=== PATIENT | female | born 1940 | race Caucasian/White ===

== ENCOUNTER → 2016-04-20 | Outpatient (CLI) | payer OTHER, MEDICARE ==
[~2016-04-20] MED LIST: ACET-1175 PO; AFRINWC; ALLO100T PO; ARC10 PO; ASPEC81 PO; ATOR10TA88 PO; BUSP15TA70 PO; CALCIUM CARBONATE 500 MG PO; CHOLECALCIFEROL PO; CLON1TAB3 PO; CLOP1TAB15 PO; CMD/25 PO; CYAN500T PO; DULO60CA44 PO; FRS/40 PO; ISOS30TA3 PO; LEVO150T22 PO; LSN25 PO; MAGNSUS5 PO; MEMA10TA PO; METO50TA7 PO; OMEP20CA59 PO; OXYC-57 PO; PRNJ PO; QUET1TAB30 PO; SENN-61 PO; THERA M PO; ULT/50 PO
== END ==
LOC: C.LABCC 12:17
PROVIDERS: ATTEND Internal Medicine
DX: J02.9 Acute pharyngitis, unspecified (principal)

== ENCOUNTER → 2016-05-18 | Outpatient (CLI) | payer OTHER, MEDICARE ==
[2016-05-18 09:18] LABS: INR 1.7 (0.9-1.1); PROTHROMBIN TIME (PATIENT) 18.1 SECONDS (9.0-12.0)
== END ==
LOC: C.LABCC 08:12
PROVIDERS: ATTEND Internal Medicine
DX: I48.91 Unspecified atrial fibrillation (principal)

== ENCOUNTER → 2016-05-22 | Outpatient (CLI) | payer OTHER, MEDICARE ==
[2016-05-22 09:36] LABS: INR 1.7 (0.9-1.1); PROTHROMBIN TIME (PATIENT) 18.1 SECONDS (9.0-12.0)
== END ==
LOC: C.LABCC 08:44
PROVIDERS: ATTEND Internal Medicine
DX: I48.91 Unspecified atrial fibrillation (principal)

== ENCOUNTER → 2016-05-25 | Outpatient (CLI) | payer OTHER, MEDICARE ==
[2016-05-25 08:51] LABS: INR 1.6 (0.9-1.1); PROTHROMBIN TIME (PATIENT) 17.9 SECONDS (9.0-12.0)
== END ==
LOC: C.LABCC 08:14
PROVIDERS: ATTEND Internal Medicine
DX: I48.91 Unspecified atrial fibrillation (principal)

== ENCOUNTER → 2016-05-30 | Outpatient (CLI) | payer OTHER, MEDICARE ==
[2016-05-30 08:20] LABS: INR 1.9 (0.9-1.1)
== END ==
LOC: C.LABCC 07:54
PROVIDERS: ATTEND Internal Medicine
DX: I82.409 Acute embolism and thrombosis of unspecified deep veins of unspecified lower extremity (principal)

== ENCOUNTER → 2016-06-07 | Outpatient (CLI) | payer OTHER, MEDICARE ==
[2016-06-07 08:38] LABS: INR 1.7 (0.9-1.1)
== END ==
LOC: C.LABCC 08:04
PROVIDERS: ATTEND Internal Medicine
DX: I82.409 Acute embolism and thrombosis of unspecified deep veins of unspecified lower extremity (principal)

== ENCOUNTER → 2016-06-14 | Outpatient (CLI) | payer OTHER, MEDICARE ==
[2016-06-14 08:15] LABS: INR 2.1 (0.9-1.1)
== END ==
LOC: C.LABCC 07:54
PROVIDERS: ATTEND Internal Medicine
DX: I82.409 Acute embolism and thrombosis of unspecified deep veins of unspecified lower extremity (principal)

== ENCOUNTER → 2016-06-21 | Outpatient (CLI) | payer OTHER, MEDICARE ==
[2016-06-21 09:42] LABS: INR 2.4 (0.9-1.1); PROTHROMBIN TIME (PATIENT) 26.8 SECONDS (9.0-12.0)
== END ==
LOC: C.LABCC 08:42
PROVIDERS: ATTEND Internal Medicine
DX: I82.409 Acute embolism and thrombosis of unspecified deep veins of unspecified lower extremity (principal)

== ENCOUNTER → 2016-07-06 | Outpatient (CLI) | payer OTHER, MEDICARE ==
[2016-07-06 09:04] LABS: INR 3.1 (0.9-1.1); PROTHROMBIN TIME (PATIENT) 34.2 SECONDS (9.0-12.0)
== END | disposition home or self-care (01) ==
LOC: C.LABCC 07:59
PROVIDERS: ATTEND Internal Medicine
DX: I82.409 Acute embolism and thrombosis of unspecified deep veins of unspecified lower extremity (principal)

== ENCOUNTER → 2016-08-21 | Outpatient (CLI) | payer OTHER, MEDICARE ==
[~2016-08-21] MED LIST changes: +ATOR10TA82 PO; -ATOR10TA88 PO
[2016-08-21 10:17] LABS: INR 3.1 (0.9-1.1); PROTHROMBIN TIME (PATIENT) 34.7 SECONDS (9.0-12.0)
[2016-08-21 10:21] LABS: ALT/SGPT 35 U/L (12-78); AST/SGOT 24 U/L (15-37); BLOOD UREA NITROGEN 18 mg/dl (7-18); BUN/CREATININE RATIO 11.4 (10-20); CALCIUM 8.5 mg/dl (8.5-10.1); CARBON DIOXIDE 32 mmol/L (21-32); CHLORIDE 101 mmol/L (98-107); GLUCOSE 121 mg/dl (70-99); POTASSIUM 4.3 mmol/L (3.5-5.1); SODIUM 139 mmol/L (136-145)
[2016-08-21 10:32] LABS: ALB/GLOB RATIO 0.9 (0.9-2); ALKALINE PHOSPHATASE 54 U/L (45-117); CHOLESTEROL 184 mg/dl (0-200); HDL CHOLESTEROL 37 mg/dl; LDL CHOLESTEROL CALCULATED 88 mg/dl; TRIGLYCERIDES 296 mg/dl (0-150); VERY LOW DENSITY LIPOPROT CALC 59 mg/dl
== END ==
LOC: C.LABCC 09:32
PROVIDERS: ATTEND Internal Medicine
DX: E03.9 Hypothyroidism, unspecified (principal); I82.409 Acute embolism and thrombosis of unspecified deep veins of unspecified lower extremity

== ENCOUNTER → 2016-08-28 | Outpatient (CLI) | payer OTHER, MEDICARE ==
[2016-08-28 09:36] LABS: ESTIMATED AVERAGE GLUCOSE 140 mg/dl; HA1C FLAG Normal (Normal)
== END ==
LOC: C.LABCC 08:16
PROVIDERS: ATTEND Internal Medicine
DX: R73.09 Other abnormal glucose (principal)

== ENCOUNTER → 2016-08-29 | Outpatient (CLI) | payer OTHER, MEDICARE ==
[2016-08-29 09:29] LABS: INR 1.9 (0.9-1.1); PROTHROMBIN TIME (PATIENT) 21.1 SECONDS (9.0-12.0)
== END ==
LOC: C.LABCC 08:34
PROVIDERS: ATTEND Internal Medicine
DX: I82.409 Acute embolism and thrombosis of unspecified deep veins of unspecified lower extremity (principal)

== ENCOUNTER → 2016-09-06 | Outpatient (CLI) | payer OTHER, MEDICARE ==
[2016-09-06 12:26] LABS: INR 2.4 (0.9-1.1); PROTHROMBIN TIME (PATIENT) 26.6 SECONDS (9.0-12.0)
== END ==
LOC: C.LABCC 15:34
PROVIDERS: ATTEND Internal Medicine
DX: I48.91 Unspecified atrial fibrillation (principal)

== ENCOUNTER → 2016-09-21 | Outpatient (CLI) | payer OTHER, MEDICARE ==
[2016-09-21 09:21] LABS: INR 2.3 (0.9-1.1); PROTHROMBIN TIME (PATIENT) 25.3 SECONDS (9.0-12.0)
== END | disposition home or self-care (01) ==
LOC: C.LABCC 08:03
PROVIDERS: ATTEND Internal Medicine
DX: I48.91 Unspecified atrial fibrillation (principal)

== ENCOUNTER → 2016-10-20 | Outpatient (CLI) | payer OTHER, MEDICARE ==
[~2016-10-20] MED LIST changes: -ATOR10TA82 PO; +ATOR10TA88 PO
[2016-10-20 08:54] LABS: PROTHROMBIN TIME (PATIENT) 22.1 SECONDS (9.0-12.0)
== END ==
LOC: C.LABCC 08:14
PROVIDERS: ATTEND Internal Medicine
DX: I48.91 Unspecified atrial fibrillation (principal)

== ENCOUNTER → 2016-11-23 | Outpatient (CLI) | payer OTHER, MEDICARE ==
[2016-11-23 08:40] LABS: PROTHROMBIN TIME (PATIENT) 44.2 SECONDS (9.0-12.0)
[2016-11-23 08:49] LABS: INR 3.9 (0.9-1.1)
== END ==
LOC: C.LABCC 08:02
PROVIDERS: ATTEND Internal Medicine
DX: I48.91 Unspecified atrial fibrillation (principal)

== ENCOUNTER → 2016-11-27 | Outpatient (CLI) | payer OTHER, MEDICARE ==
[2016-11-27 11:00] LABS: BLOOD UREA NITROGEN 35 mg/dl (7-18); BUN/CREATININE RATIO 18.4 (10-20); CALCIUM 9.2 mg/dl (8.5-10.1); CARBON DIOXIDE 33 mmol/L (21-32); CHLORIDE 94 mmol/L (98-107); GLUCOSE 130 mg/dl (70-99); POTASSIUM 4.2 mmol/L (3.5-5.1); SODIUM 132 mmol/L (136-145)
[2016-11-27 11:06] LABS: INR 2.7 (0.9-1.1); PROTHROMBIN TIME (PATIENT) 29.6 SECONDS (9.0-12.0)
== END ==
LOC: C.LABCC 10:26
PROVIDERS: ATTEND Internal Medicine
DX: I82.409 Acute embolism and thrombosis of unspecified deep veins of unspecified lower extremity (principal); R60.9 Edema, unspecified

== ENCOUNTER → 2016-12-04 | Outpatient (CLI) | payer OTHER, MEDICARE ==
[2016-12-04 09:59] LABS: INR 1.5 (0.9-1.1); PROTHROMBIN TIME (PATIENT) 16.4 SECONDS (9.0-12.0)
== END ==
LOC: C.LABCC 09:38
PROVIDERS: ATTEND Internal Medicine
DX: I82.409 Acute embolism and thrombosis of unspecified deep veins of unspecified lower extremity (principal)

== ENCOUNTER → 2016-12-08 | Outpatient (CLI) | payer OTHER, MEDICARE ==
[2016-12-08 08:51] LABS: INR 1.8 (0.9-1.1); PROTHROMBIN TIME (PATIENT) 19.6 SECONDS (9.0-12.0)
== END ==
LOC: C.LABCC 08:02
PROVIDERS: ATTEND Internal Medicine
DX: I82.409 Acute embolism and thrombosis of unspecified deep veins of unspecified lower extremity (principal)

== ENCOUNTER → 2016-12-19 | Outpatient (CLI) | payer OTHER, MEDICARE ==
[2016-12-19 11:29] LABS: INR 1.7 (0.9-1.1); PROTHROMBIN TIME (PATIENT) 18.5 SECONDS (9.0-12.0)
== END ==
LOC: C.LABCC 09:03
PROVIDERS: ATTEND Internal Medicine
DX: I82.409 Acute embolism and thrombosis of unspecified deep veins of unspecified lower extremity (principal)

== ENCOUNTER → 2016-12-20 | Outpatient (CLI) | payer OTHER, MEDICARE ==
[2016-12-20 11:26] LABS: BLOOD UREA NITROGEN 17 mg/dl (7-18); BUN/CREATININE RATIO 11.4 (10-20); CALCIUM 8.9 mg/dl (8.5-10.1); CARBON DIOXIDE 30 mmol/L (21-32); CHLORIDE 97 mmol/L (98-107); GLUCOSE 131 mg/dl (70-99); POTASSIUM 4.3 mmol/L (3.5-5.1); SODIUM 135 mmol/L (136-145)
[2016-12-20 11:41] LABS: ESTIMATED AVERAGE GLUCOSE 151 mg/dl; HA1C FLAG Normal (Normal)
== END ==
LOC: C.LABCC 08:40
PROVIDERS: ATTEND Internal Medicine
DX: R73.09 Other abnormal glucose (principal); N18.9 Chronic kidney disease, unspecified

== ENCOUNTER → 2016-12-25 | Outpatient (CLI) | payer OTHER, MEDICARE ==
[2016-12-25 09:59] LABS: PROTHROMBIN TIME (PATIENT) 22.6 SECONDS (9.0-12.0)
== END ==
LOC: C.LABCC 09:15
PROVIDERS: ATTEND Internal Medicine
DX: I82.409 Acute embolism and thrombosis of unspecified deep veins of unspecified lower extremity (principal)

== ENCOUNTER → 2016-12-29 | Outpatient (CLI) | payer OTHER, MEDICARE ==
[2016-12-29 08:32] LABS: ESTIMATED AVERAGE GLUCOSE 148 mg/dl; HA1C FLAG Normal (Normal)
== END ==
LOC: C.LABCC 07:59
PROVIDERS: ATTEND Internal Medicine
DX: E11.9 Type 2 diabetes mellitus without complications (principal)

== ENCOUNTER → 2017-01-02 | Outpatient (CLI) | payer OTHER, MEDICARE ==
[2017-01-02 08:18] LABS: INR 2.4 (0.9-1.1); PROTHROMBIN TIME (PATIENT) 26.6 SECONDS (9.0-12.0)
== END ==
LOC: C.LABCC 07:44
PROVIDERS: ATTEND Internal Medicine
DX: I82.409 Acute embolism and thrombosis of unspecified deep veins of unspecified lower extremity (principal)

== ENCOUNTER → 2017-01-17 | Outpatient (CLI) | payer OTHER, MEDICARE ==
[2017-01-17 09:01] LABS: INR 1.7 (0.9-1.1); PROTHROMBIN TIME (PATIENT) 18.5 SECONDS (9.0-12.0)
== END | disposition home or self-care (01) ==
LOC: C.LABCC 08:37
PROVIDERS: ATTEND Internal Medicine
DX: I82.409 Acute embolism and thrombosis of unspecified deep veins of unspecified lower extremity (principal)

== ENCOUNTER → 2017-02-20 | Outpatient (CLI) | payer OTHER, MEDICARE ==
[~2017-02-20] MED LIST changes: +ATOR10TA82 PO; -ATOR10TA88 PO
[2017-02-20 08:26] LABS: INR 3.4 (0.9-1.1); PROTHROMBIN TIME (PATIENT) 38.2 SECONDS (9.0-12.0)
== END ==
LOC: C.LABCC 08:01
PROVIDERS: ATTEND Internal Medicine
DX: I82.409 Acute embolism and thrombosis of unspecified deep veins of unspecified lower extremity (principal)

== ENCOUNTER → 2017-03-27 | Outpatient (CLI) | payer OTHER, MEDICARE ==
[2017-03-27 08:47] LABS: INR 2.2 (0.9-1.1); PROTHROMBIN TIME (PATIENT) 23.2 SECONDS (9.0-12.0)
== END ==
LOC: C.LABCC 08:14
PROVIDERS: ATTEND Internal Medicine
DX: I82.890 Acute embolism and thrombosis of other specified veins (principal)

== ENCOUNTER → 2017-04-23 | Outpatient (CLI) | payer OTHER, MEDICARE ==
[2017-04-23 12:04] LABS: HEMOGLOBIN A1C 6.5 % (4.5-5.6)
== END ==
LOC: C.LABCC 09:57
PROVIDERS: ATTEND Internal Medicine
DX: E11.9 Type 2 diabetes mellitus without complications (principal)

== ENCOUNTER → 2017-04-30 | Outpatient (CLI) | payer OTHER, MEDICARE ==
[2017-04-30 09:26] LABS: INR 3.4 (0.9-1.1)
== END ==
LOC: C.LABCC 08:55
PROVIDERS: ATTEND Internal Medicine
DX: I82.409 Acute embolism and thrombosis of unspecified deep veins of unspecified lower extremity (principal)

== ENCOUNTER → 2017-05-03 | Outpatient (CLI) | payer OTHER, MEDICARE ==
[2017-05-03 09:58] LABS: HEMOGLOBIN A1C 6.6 % (4.5-5.6)
== END ==
LOC: C.LABCC 09:02
PROVIDERS: ATTEND Internal Medicine
DX: E11.9 Type 2 diabetes mellitus without complications (principal)

== ENCOUNTER → 2017-05-16 | Outpatient (CLI) | payer OTHER, MEDICARE ==
[~2017-05-16] MED LIST changes: -METO50TA7 PO; +METO50TA8 PO
[2017-05-16 08:33] LABS: BASO % 0.8 %; BASO ABS # 0.06 K/uL (0-0.2); EOS ABS # 0.31 K/uL (0-0.5); HEMATOCRIT 37.4 % (37-47); HEMOGLOBIN 12.2 g/dL (12.0-16.0); IG# 0.02 K/uL (0.00-0.02); LYMPH % 33.1 %; LYMPH ABS # 2.56 K/uL (1.2-3.4); MEAN CELL VOLUME 97.4 fL (80-100); MEAN CORPUSCULAR HEMOGLOBIN 31.8 pg (25-34); MEAN CORPUSCULAR HGB CONC 32.6 g/dl (32-36); MEAN PLATELET VOLUME 9.3 fL (7.4-10.4); MONO % 8.3 %; MONO ABS # 0.64 K/uL (0.11-0.59); NEUT % 53.5 %; NEUT ABS # 4.15 K/uL (1.4-6.5); PLATELET COUNT 225 K/uL (130-400); RED CELL DISTRIBUTION WIDTH CV 14.4 % (11.5-14.5); RED CELL DISTRIBUTION WIDTH SD 51.6 fL (36.4-46.3); WHITE BLOOD COUNT 7.74 K/uL (4.8-10.8)
[2017-05-16 08:44] LABS: ALBUMIN 3.2 gm/dl (3.4-5.0); BLOOD UREA NITROGEN 17 mg/dl (7-18); CARBON DIOXIDE 28 mmol/L (21-32); CREATININE 1.62 mg/dl (0.60-1.20); GLUCOSE 119 mg/dl (70-99); POTASSIUM 4.4 mmol/L (3.5-5.1); SODIUM 136 mmol/L (136-145); URIC ACID 6.2 mg/dl (2.6-7.2)
[2017-05-16 08:50] LABS: INR 3.1 (0.9-1.1)
[2017-05-16 08:55] LABS: PHOSPHORUS 3.6 mg/dl (2.5-4.9)
== END ==
LOC: C.LABCC 07:59
PROVIDERS: ATTEND Internal Medicine
DX: I82.409 Acute embolism and thrombosis of unspecified deep veins of unspecified lower extremity (principal); N18.3 Chronic kidney disease, stage 3 (moderate); E03.9 Hypothyroidism, unspecified; M10.9 Gout, unspecified

== ENCOUNTER → 2017-05-24 | Outpatient (CLI) | payer OTHER, MEDICARE ==
[2017-05-24 08:32] LABS: BLOOD UREA NITROGEN 22 mg/dl (7-18); CALCIUM 9.2 mg/dl (8.5-10.1); CARBON DIOXIDE 28 mmol/L (21-32); CREATININE 1.56 mg/dl (0.60-1.20); GLUCOSE 119 mg/dl (70-99); POTASSIUM 4.3 mmol/L (3.5-5.1); SODIUM 136 mmol/L (136-145)
[2017-05-24 08:35] LABS: INR 3.2 (0.9-1.1)
== END ==
LOC: C.LABCC 08:02
PROVIDERS: ATTEND Internal Medicine
DX: I82.409 Acute embolism and thrombosis of unspecified deep veins of unspecified lower extremity (principal); N17.9 Acute kidney failure, unspecified

== ENCOUNTER → 2017-06-01 | Outpatient (CLI) | payer OTHER, MEDICARE ==
[2017-06-01 08:37] LABS: INR 3.2 (0.9-1.1)
== END ==
LOC: C.LABCC 07:49
PROVIDERS: ATTEND Internal Medicine
DX: I82.409 Acute embolism and thrombosis of unspecified deep veins of unspecified lower extremity (principal)

== ENCOUNTER → 2017-06-06 | Outpatient (CLI) | payer OTHER, MEDICARE ==
[2017-06-06 11:11] LABS: INR 3.8 (0.9-1.1)
== END ==
LOC: C.LABCC 09:06
PROVIDERS: ATTEND Internal Medicine
DX: I82.409 Acute embolism and thrombosis of unspecified deep veins of unspecified lower extremity (principal)

== ENCOUNTER → 2017-06-11 | Outpatient (CLI) | payer OTHER, MEDICARE ==
[2017-06-12 01:08] LABS: BASO % 0.5 %; BASO ABS # 0.05 K/uL (0-0.2); EOS % 4.3 %; EOS ABS # 0.47 K/uL (0-0.5); HEMATOCRIT 35.7 % (37-47); HEMOGLOBIN 12.1 g/dL (12.0-16.0); IG# 0.03 K/uL (0.00-0.02); LYMPH % 29.3 %; MEAN CELL VOLUME 97.3 fL (80-100); MEAN CORPUSCULAR HGB CONC 33.9 g/dl (32-36); MEAN PLATELET VOLUME 9.7 fL (7.4-10.4); MONO % 10.4 %; MONO ABS # 1.14 K/uL (0.11-0.59); NEUT % 55.2 %; NEUT ABS # 6.02 K/uL (1.4-6.5); PLATELET COUNT 238 K/uL (130-400); RED CELL DISTRIBUTION WIDTH CV 14.3 % (11.5-14.5); RED CELL DISTRIBUTION WIDTH SD 51.3 fL (36.4-46.3); WHITE BLOOD COUNT 10.91 K/uL (4.8-10.8)
== END ==
LOC: C.LABCC 23:00
PROVIDERS: ATTEND Internal Medicine
DX: R50.9 Fever, unspecified (principal); J18.0 Bronchopneumonia, unspecified organism

== ENCOUNTER → 2017-06-13 | Outpatient (CLI) | payer OTHER, MEDICARE ==
[2017-06-13 09:05] LABS: INR 3.5 (0.9-1.1)
== END ==
LOC: C.LABCC 08:22
PROVIDERS: ATTEND Internal Medicine
DX: I82.409 Acute embolism and thrombosis of unspecified deep veins of unspecified lower extremity (principal)

== ENCOUNTER → 2017-06-14 | Outpatient (CLI) | payer OTHER, MEDICARE ==
[2017-06-14 10:05] LABS: INR 3.3 (0.9-1.1)
== END ==
LOC: C.LABCC 08:17
PROVIDERS: ATTEND Internal Medicine
DX: I82.409 Acute embolism and thrombosis of unspecified deep veins of unspecified lower extremity (principal)

== ENCOUNTER → 2017-06-18 | Outpatient (CLI) | payer OTHER, MEDICARE ==
[2017-06-18 09:26] LABS: INR 2.5 (0.9-1.1)
== END | disposition home or self-care (01) ==
LOC: C.LABCC 09:01
PROVIDERS: ATTEND Internal Medicine
DX: I82.409 Acute embolism and thrombosis of unspecified deep veins of unspecified lower extremity (principal)

== ENCOUNTER → 2017-11-28 | Outpatient (CLI) | payer OTHER, MEDICARE ==
[~2017-11-28] MED LIST changes: +CLON1TAB10 PO; -CLON1TAB3 PO
[2017-11-28 09:51] LABS: INR 1.7 (0.9-1.1)
== END | disposition home or self-care (01) ==
LOC: C.LABCC 08:30
PROVIDERS: ATTEND Internal Medicine
DX: I82.409 Acute embolism and thrombosis of unspecified deep veins of unspecified lower extremity (principal)

== ENCOUNTER → 2017-11-29 | Outpatient (CLI) | payer OTHER, MEDICARE ==
[2017-11-29 10:16] LABS: HEMOGLOBIN A1C 6.5 % (4.5-5.6)
== END ==
LOC: C.LABCC 08:44
PROVIDERS: ATTEND Internal Medicine
DX: R73.01 Impaired fasting glucose (principal); E78.5 Hyperlipidemia, unspecified

== ENCOUNTER 2019-02-25 09:37 | Inpatient (IN) ==
[2019-02-25] MEDS ORDERED: SODIUM CHLORIDE 0.9% 1000ML 2,000 ML IV ONE (09:58)
[2019-02-25] MEDS ORDERED: ERTAPENEM SODIUM 10 ML IV STA (09:58)
[2019-02-25 10:11] LABS: Appearance Urine Slightly Cloudy (Clear); Bilirubin Urine Negative (Negative); Blood Urine Trace (Negative); Color Urine Amber; Glucose Urine UA Negative (Negative); Ketones Urine Negative (Negative); Leukocyte Esterase Urine Negative (Negative); Nitrite Urine Negative (Negative); Protein Urine 1+ (Negative); Specific Gravity Urine 1.025 (1.000-1.030); Urobilinogen Urine Negative (Negative)
[2019-02-25 10:27] LABS: Epithelial Cell Urine >30 /lpf (0-5); RBC Urine 0-4 /hpf (0-4)
[2019-02-25] MEDS ORDERED: VANCOMYCIN CONSULT ACTIVE PRN ×2 (10:27→13:40)
[2019-02-25] MEDS ORDERED: ALBUT/IPRATROP 3MG/0.5MG NEB 3 ML VIAL NEB STA (10:27)
[2019-02-25] MEDS ORDERED: VANCOMYCIN HCL 1,750 MG in SODIUM CHLORIDE 0.9% 500 ML IV ONE (10:27)
[2019-02-25 10:30] LABS: Amorphous Sediment Urine Present (None Prsent); Bacteria Urine 1+ (Negative); Hyaline Casts Urine 0-5 /lpf (0-5)
[2019-02-25 11:11] LABS: Basophils # (auto) 0.03 K/uL (0-0.2); Basophils % (auto) 0.2 %; Eosinophils # (auto) 0.28 K/uL (0-0.5); Eosinophils % (auto) 1.5 %; Hematocrit (blood only) 35.8 % (37-47); Hemoglobin 10.8 g/dL (12.0-16.0); Immature Granulocytes # (auto) 0.12 K/uL (0.00-0.02); Immature Granulocytes % (auto) 0.7 %; Lymphocytes # (auto) 1.39 K/uL (1.2-3.4); Lymphocytes % (auto) 7.7 %; Mean Corpuscular Hemoglobin 29.9 pg (25-34); Mean Corpuscular Hgb Conc 30.2 g/dL (32-36); Mean Corpuscular Volume 99.2 fL (80-100); Mean Platelet Volume 10.7 fL (7.4-10.4); Monocytes # (auto) 1.42 K/uL (0.11-0.59); Monocytes % (auto) 7.8 %; Neutrophils # (auto) 14.87 K/uL (1.4-6.5); Neutrophils % (auto) 82.1 %; Nucleated RBC # (auto) 0.27 K/uL (0-0); Nucleated RBC % (auto) 1.5 %; Platelet Count 132 K/uL (130-400); RDW Coefficient of Variation 16.3 % (11.5-14.5); RDW Standard Deviation 56.6 fL (36.4-46.3); Red Blood Count 3.61 M/uL (4.2-5.4); White Blood Count 18.11 K/uL (4.8-10.8)
--- NOTE | 2019-02-25 11:23 | XRay Report ---
SINGLE VIEW CHEST CLINICAL HISTORY: Fever. FINDINGS: An AP, portable, upright chest radiograph is compared to study dated 07/19/2006. The examina tion is degraded by portable technique and patient rotation. The heart is enlarged noting atheroscl erotic calcification of the thoracic aorta. There is multifocal bilateral airspace consolidation. No large pleural effusion or pneumothorax is seen. The skeletal structures are osteopenic. The bony thor ax is grossly intact. Cholecystectomy clips are noted in the right upper quadrant. IMPRESSION: There is multifocal bilateral airspace consolidation. Top differential considerations inc lude multifocal pneumonia and/or pulmonary edema. Clinical correlation will be essential. Electronically signed by: Vic Garcia M.D. 02/25/2019 11:21 AM
[2019-02-25 11:30] LABS: Albumin Level 2.2 gm/dl (3.4-5.0); BUN Creatinine Ratio 26.4 (10-20); Calcium 8.8 mg/dl (8.5-10.1); Creatinine Clr Calc Pharmacy 21.6 ml/min; Est GFR (African American) 25.4; Est GFR (Non-African American) 21.9; Potassium 5.8 mmol/L (3.5-5.1)
[2019-02-25 11:39] LABS: Albumin Globulin Ratio 0.5 (0.9-2); Bilirubin,Total 0.7 mg/dl (0.2-1); Globulin 4.9 gm/dl (2.5-4.0); Prothrombin Time 65.2 Seconds (9.0-12.0); Total Protein 7.1 gm/dl (6.4-8.2); Troponin I 1.27 ng/ml (0-0.045)
--- NOTE | 2019-02-25 11:39 | History & Physical Report ---
Date of Service February 25, 2019 Assessment & Plan (1) Acute and chronic respiratory failure with hypoxia: - Due to pneumonia, hypoxic at SNF (2) Pneumonia: - Admit to med surg - Repeat Lactic at 1300, initial POC value was 1.57 - Continue vanc and ertapenum IV due to allergies to penicillins and sulfa - Speech eval for possible aspiration with worsened breath sounds in the RML and RLL, bedside swallow to be completed by nursing prior to any food. - Incentive spirometry, mucinex, levalbuterol nebs QID and Q2H prn - Sputum culture if expectorates - Check MRSA swab, influenza was negative - Continue supplemental O2 prn and titrate (3) CAD (coronary artery disease): - Cont metoprolol succ 12.5 mg daily, imdur, 30 mg QAM, Plavix 75 mg daily - EKG reviewed, NSR without signs of acute ischemic events or ST wave changes. (4) Ischemic cardiomyopathy: - Continue medications as above - Consider 2D echo, last was from August 2004 with LVEF =55%, normal systolic function (5) PVD (peripheral vascular disease): - Continue medications as above (6) HLD (hyperlipidemia): - not on statin therapy (7) Dementia without behavioral disturbance: - Continue namenda, severity unknown. (8) CKD (chronic kidney disease) stage 3, GFR 30-59 ml/min: - Cr. stable at 2.08, BUN = 55 - Follow am prp - Avoid nephrotoxins and renally dose medication (9) Hypothyroidism: - Cont levothyroxine (10) DM II (diabetes mellitus, type II), controlled: - Not on antiglycemics as outpt, trend glucose with daily BMP, glucose up on arrival is 111. Add ISS if continuously elevated while inpatient. - Last a1c= 6.8 on 02/10/19 (11) Anemia: - Hgb stable at 10.8, follow am CBC = Continue iron supplementation (12) Anxiety: (13) MDD (major depressive disorder): - Continue Cymbalta, buspar, gabapentin, clonazepam, trazodone - holding melatonin (14) Hx of deep venous thrombosis: - INR supratherapeutic at 7.3, hold coumadin until therapeutic - follow daily pt/inr - Caution with antibiotics as above as may influence (15) GERD (gastroesophageal reflux disease): - Continue ranitidine 150 mg BID (16) Back pain: - Continue cymbalta, gabapentin, oxycodone, tylenol for pain (17) Osteoarthritis: - Medications as above, multiple joints. (18) DVT prophylaxis: - INR supratherapeutic, holding coumadin for now with daily INRs, teds CODE: DNR Dispo: From [facility], likely to remain in the hospital for at least 2 days. History of Present Illness Chief Complaint: SOB Primary Care Provider: [facility] This is an 78-year-old female with PMHx of CAD, ischemic cardiomyopathy, PVD, HLD, DM type II, CKD stage III, anemia, low back pain, osteoarthritis, anxiety and depression, dementia, history of DVT, GERD, who presents with acute shortness of breath from [facility]. She was found to be lethargic and short of breath this morning. Patient's blood pressure was noted to be 95/58 by EMS at the time of transfer from [facility]. The patient cannot recall how long she has felt like this. She denies feeling feverish, sweats or chills. She reports her breathing is "okay" but is wearing a oxygen mask on 10 L, and per her records it does not appear she requires any at baseline. She denies any chest pain or heaviness. She is unable to tell me where we are, but does know her name. She is unable to support herself when leaning forward for me to listen to her lungs. There is no other family present. It appears she has been recently started on Ceftin and Macrobid for UTI on 02/21/2019 and was planned to be continued for 7 days. Unknown culture results. She was also being treated for oral thrush with nystatin swish and swallow as well as fluconazole po.started on 02/13/2019 for a 10-day course. Per her med reconciliation she was able to take Plavix, Coumadin 2 mg, duloxetine, Imdur, levothyroxine, metoprolol succ 12.5 mg daily, oxycodone 10 mg, potassium, Robit ussin-DM syrup and vitamin B1 today. CXR reviewed showing infiltrate in the right lower lobe. WBC elevated at 18.11, sodium elevated at 148, potassium 5.8, creatinine 2.08, BUN 55. Lactate upon arrival was 1.57. Troponin is elevated at 1.270. INR supratherapeutic at 7.3 Allergies Allergy/AdvReac Type Severity Reaction Status Date / Time Penicillins Allergy Unknown Verified 02/25/19 10:16 aspirin AdvReac Mild UNCOATED - Verified 02/25/19 10:16 GI UPSET abciximab AdvReac Unknown THROMBOCYTO Verified 02/25/19 10:16 PENIA morphine AdvReac Unknown MENTAL Verified 02/25/19 10:16 STATUS CHANGES CONTRASTMEDIA Allergy Unknown RASH Uncoded 02/25/19 10:16 SULFA Allergy Unknown UNKNOWN Uncoded 02/25/19 10:16 Home Medications Home Medications Medication Instructions Recorded Confirmed Type acetaminophen [Tylenol Extra 1,000 mg PO BID PRN 02/25/19 02/25/19 History Strength] allopurinol 100 mg PO QAM 02/25/19 02/25/19 History bisacodyl 5 mg PO QAM 02/25/19 02/25/19 History buspirone 5 mg PO BID 02/25/19 02/25/19 History calcium carbonate-vitamin D3 1 ea PO BID 02/25/19 02/25/19 History [Oyster Shell Calcium-Vit D3] cefuroxime axetil 500 mg PO BID 02/25/19 02/25/19 History clonazepam 0.5 mg PO BID 02/25/19 02/25/19 History clopidogrel 75 mg PO QAM 02/25/19 02/25/19 History cyanocobalamin (vitamin B-12) 250 mcg PO QAM 02/25/19 02/25/19 History [Vitamin B-12] dextromethorphan-guaifenesin 10 ml PO Q6H PRN 02/25/19 02/25/19 History donepezil 10 mg PO HS 02/25/19 02/25/19 History duloxetine 60 mg PO QAM 02/25/19 02/25/19 History ferrous gluconate 324 mg PO BID 02/25/19 02/25/19 History fluconazole 100 mg PO DAILY@1000 02/25/19 02/25/19 History gabapentin 300 mg PO HS 02/25/19 02/25/19 History isosorbide mononitrate 30 mg PO QAM 02/25/19 02/25/19 History levothyroxine 137 mcg PO QAM 02/25/19 02/25/19 History melatonin 5 mg PO HS 02/25/19 02/25/19 History memantine 5 mg PO BID 02/25/19 02/25/19 History metoprolol succinate 12.5 mg PO QAM 02/25/19 02/25/19 History nitrofurantoin monohyd/m-cryst 100 mg PO BID 02/25/19 02/25/19 History nystatin 5 ml PO QID 02/25/19 02/25/19 History oxycodone 5 mg PO TID 02/25/19 02/25/19 History potassium chloride 20 meq PO QAM 02/25/19 02/25/19 History ranitidine HCl 150 mg PO BID 02/25/19 02/25/19 History sennosides-docusate sodium [Senna 1 tab-cap PO BID 02/25/19 02/25/19 History Plus] trazodone 25 mg PO HS 02/25/19 02/25/19 History warfarin 2 mg PO HS 02/25/19 02/25/19 History Past Med/Surg History Medical History (Updated 02/25/19 @ 13:21 by Belle Briggs PA-C) Acute and chronic respiratory failure with hypoxia Anemia Anxiety Back pain CAD (coronary artery disease) CKD (chronic kidney disease) stage 3, GFR 30-59 ml/min Dementia without behavioral disturbance DM II (diabetes mellitus, type II), controlled GERD (gastroesophageal reflux disease) HLD (hyperlipidemia) Hx of deep venous thrombosis Hypertension Hypothyroidism Ischemic cardiomyopathy MDD (major depressive disorder) Osteoarthritis PVD (peripheral vascular disease) Family History Other Family history non-contributory Social History Preferred Language: Romanian Communication Ability: Impaired Communication Ability Comment: lethargic 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: No Beliefs That Will Affect Care: None Current Living Situation: Snf Current Living Situation Comment: [facility] Other Information That Helps Us Care for You: No Feels Safe at Home: Yes Safety Concerns: Feels Safe At This Time Smoking Status: Unknown if ever smoked Hx Alcohol Use: No Hx Substance Use: No Review of Systems Review of Systems: Constitutional: No fever, sweats or chills Eyes: No diplopia, no worsening or blurred vision ENT: normal hearing, no trouble swallowing Respiratory: + dry cough, + dyspnea at rest Cardiovascular: No chest pain, tightness or palpitations Abdomen: No pain, nausea, vomiting, diarrhea or constipation Musculoskeletal: No joint pain, calf pain, swelling Neurologic: No weakness, numbness/tingling, or balance problems Psychiatric: No anxiety or depression, on medications Skin: No rash or itch Physical Exam Physical Exam: General: +lethargic but responds to verbal stimuli with head nodding and minimal conversation, no apparent distress Head: Normocephalic, atraumatic ENT: PERRL, EOMI, mucous membranes dry Chest:+ rales at right base and mid lung, left without adventitious breath sounds, on 10 L via oxymask Cardiac: Regular rate and rhythm, no murmur, no JVD, normal peripheral pulses, good capillary refill Abdominal: NABS x 4 quadrants, soft,nondistended, nontender to palpation, no rebound, guarding or tenderness Back: kyphosis of spine Extremities: Normal inspection, no peripheral edema or erythema, calfs nontender to palpation Psych: Normal mood and affect Neuro: lethargic, knows her name, cannot identify date or place, speech is clear, no peripheral sensory deficits Constitutional: WD/WN, vitals as above + ill appearing Eyes: normal visual [place]ward by confrontation and + anicteric sclerae Neck: normal visual inspection and trachea midline Respiratory: normal respiratory effort (slightly increased work of breathing with discussion); no respiratory distress Auscultation: + crackles; no wheezes Cardiovascular: Rate/Rhythm: regular rate and regular rhythm Gastrointestinal (Abdomen): Inspection/Auscultation: abdomen not distended Percussion/Palpation: abdomen soft; abdomen nontender Musculoskeletal: Head/Neck/Chest: normocephalic and head atraumatic Pt with R hand and wrist swelling around bandaging edema, + pedal pulses Skin: no rashes, warm and dry R hand is bruised along dorsal aspect and wrist Neurologic: awake; not confused Speech / Cognition: normal speech Psychiatric: Orientation: oriented to person and cooperative Lymphatic: Exam as done by Gia Rogers DO Results & Data Vital Signs (Past 12 Hours) Vital Signs Temp Pulse Pulse Resp BP BP Pulse Ox 02/25/19 11:30 69 17 102/56 L 94 02/25/19 10:54 68 20 98 02/25/19 10:01 65 16 93/55 L 95 02/25/19 09:57 72 16 93/64 L 96 02/25/19 09:45 71 16 95 02/25/19 09:44 83 L 02/25/19 09:43 37.3 C 74 17 80/61 L 75 L Diagnostic Findings SINGLE VIEW CHEST CLINICAL HISTORY: Fever. FINDINGS: An AP, portable, upright chest radiograph is compared to study dated 07/19/2006. The examination is degraded by portable technique and patient rotation. The heart is enlarged noting atherosclerotic calcification of the thoracic aorta. There is multifocal bilateral airspace consolidation. No large pleural effusion or pneumothorax is seen. The skeletal structures are osteopenic. The bony thorax is grossly intact. Cholecystectomy clips are noted in the right upper quadrant. IMPRESSION: There is multifocal bilateral airspace consolidation. Top differential considerations include multifocal pneumonia and/or pulmonary edema. Clinical correlation will be essential. Code Status & VTE Plan Code Status DNR Supervising Physician Co-Signing Physician Notes Pt seen and examined by me. 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 Still SOB. Has not had chest pain. Tray is present but she states she is not hungry. 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 Nursing states there was an issue with the IV, so it had to be d/c'd and reinserted to L UE. Agree with HPI/ROS as noted by PA See above for my exam in PE section Agree with plan as outlined above PNA noted on CXR, abx Flu neg Blood cx pending Slight ARF, likely in the setting of PNA and decreased PO intake INR elevated, likely due to same--no s/sx of bleeding, hold coumadin Trop with mild elevation in the setting of renal disease, repeat and monitor R UE bruising, likely related to IV site, now with swelling in the setting of 2L IVF Advised nursing to monitor and d/c bandaging if able. No other swelling noted, will not give diuretics given no hx of CHF and now with increased cr PG Care Time/CCT Total # of Minutes Spent Total Time Spent with Patient: Total time spent is greater than 50% in coordination of care (as documented) at patient's floor/unit and/or counseling patient: (1) Pneumonia Laterality: bilateral Lung location: unspecified part of lung Pneumonia type: due to unspecified organism Qualified Code(s): J18.9 - Pneumonia, unsp ecified organism
[2019-02-25 11:49] LABS: INR 7.3 (0.9-1.1)
--- NOTE | 2019-02-25 11:50 | Emergency Department Note ---
Entered by Harpreet Shah acting as a scribe for Pancho De La Cruz DO History of Present Illness General Chief complaint: Respiratory Problems Stated complaint: sob/lethargic Time Seen by Provider: 02/25/19 09:54 Source: RN notes reviewed History of Present Illness Provider complaint: Unresponsive Onset (ago): hour(s) (This morning) Location: head Pain Consistency: + constant Associated symptoms: + cough, + shortness of breath and + other (Incontinent) The patient is an 78 year old female who presents to the Emergency Room via EMS from [facility] after the patient was found constantly lethargic and unresponsive. Per the nursing note, the patient was also found to have shallow respirations while at the [facility] as well as some incontinence. Per the nurse, the patient also has a productive cough with sputum that has a tint of red. Per the nursing note, EMS was called because the patient's pulse ox was in the 60s on room air. When EMS arrived the patient's pulse ox was 75% but after being put on 10L of oxygen it increased to 91%. The patient's blood pressure was running around 80/60 and her BSG was 160. HPI is limited secondary to unrespo nsive patient. Home Medications Home Medications Medication Instructions Recorded Confirmed Type acetaminophen [Tylenol Extra 1,000 mg PO BID PRN 02/25/19 02/25/19 History Strength] allopurinol 100 mg PO QAM 02/25/19 02/25/19 History bisacodyl 5 mg PO QAM 02/25/19 02/25/19 History buspirone 5 mg PO BID 02/25/19 02/25/19 History calcium carbonate-vitamin D3 1 ea PO BID 02/25/19 02/25/19 History [Oyster Shell Calcium-Vit D3] cefuroxime axetil 500 mg PO BID 02/25/19 02/25/19 History clonazepam 0.5 mg PO BID 02/25/19 02/25/19 History clopidogrel 75 mg PO QAM 02/25/19 02/25/19 History cyanocobalamin (vitamin B-12) 250 mcg PO QAM 02/25/19 02/25/19 History [Vitamin B-12] dextromethorphan-guaifenesin 10 ml PO Q6H PRN 02/25/19 02/25/19 History donepezil 10 mg PO HS 02/25/19 02/25/19 History duloxetine 60 mg PO QAM 02/25/19 02/25/19 History ferrous gluconate 324 mg PO BID 02/25/19 02/25/19 History fluconazole 100 mg PO DAILY@1000 02/25/19 02/25/19 History gabapentin 300 mg PO HS 02/25/19 02/25/19 History isosorbide mononitrate 30 mg PO QAM 02/25/19 02/25/19 History levothyroxine 137 mcg PO QAM 02/25/19 02/25/19 History melatonin 5 mg PO HS 02/25/19 02/25/19 History memantine 5 mg PO BID 02/25/19 02/25/19 History metoprolol succinate 12.5 mg PO QAM 02/25/19 02/25/19 History nitrofurantoin monohyd/m-cryst 100 mg PO BID 02/25/19 02/25/19 History nystatin 5 ml PO QID 02/25/19 02/25/19 History oxycodone 5 mg PO TID 02/25/19 02/25/19 History potassium chloride 20 meq PO QAM 02/25/19 02/25/19 History ranitidine HCl 150 mg PO BID 02/25/19 02/25/19 History sennosides-docusate sodium [Senna 1 tab-cap PO BID 02/25/19 02/25/19 History Plus] trazodone 25 mg PO HS 02/25/19 02/25/19 History warfarin 2 mg PO HS 02/25/19 02/25/19 History Allergies Allergy/AdvReac Type Severity Reaction Status Date / Time Penicillins Allergy Unknown Verified 02/25/19 10:16 aspirin AdvReac Mild UNCOATED - Verified 02/25/19 10:16 GI UPSET abciximab AdvReac Unknown THROMBOCYTO Verified 02/25/19 10:16 PENIA morphine AdvReac Unknown MENTAL Verified 02/25/19 10:16 STATUS CHANGES CONTRASTMEDIA Allergy Unknown RASH Uncoded 02/25/19 10:16 SULFA Allergy Unknown UNKNOWN Uncoded 02/25/19 10:16 Past Med/Surg History Medical History (Updated 02/25/19 @ 12:17 by Belle C Filipowicz, PA-C) Anemia Anxiety Back pain CAD (coronary artery disease) CKD (chronic kidney disease) stage 3, GFR 30-59 ml/min Dementia without behavioral disturbance DM II (diabetes mellitus, type II), controlled GERD (gastroesophageal reflux disease) HLD (hyperlipidemia) Hx of deep venous thrombosis Hypertension Hypothyroidism Ischemic cardiomyopathy MDD (major depressive disorder) Osteoarthritis PVD (peripheral vascular disease) Family History Other Family history non-contributory Social History Preferred Language: [place] Citizen Communication Ability: Impaired Communication Ability Comment: lethargic [employer] Consultant Required: No Beliefs That Will Affect Care: None Current Living Situation: Penitentiary Current Living Situation Comment: [facility] Other Information That Helps Us Care for You: No Feels Safe at Home: Yes Safety Concerns: Feels Safe At This Time Smoking Status: Unknown if ever smoked Hx Alcohol Use: No Hx Substance Use: No Review of Systems See HPI for pertinent positives & negatives. Other (HPI is limited secondary to unresponsive patient. ) Physical Exam Vital Signs Vital Signs - 24 hr 02/25/19 09:43 02/25/19 09:44 02/25/19 09:45 Temperature 37.3 C Temperature Source Rectal Pulse Rate 74 Pulse Rate [Apical] 71 Pulse Rhythm Regular Pulse Rhythm [Apical] Regular Respiratory Rate 17 16 Respiratory Effort / Characteristics Respiratory Depth Shallow Shallow Respiratory Pattern Regular Blood Pressure 80/61 L Blood Pressure [Right Arm] Blood Pressure Mean 67 Blood Pressure Mean [Right Arm] Pulse Oximetry 75 L 83 L 95 Oxygen Delivery Method Oxymask Nasal Cannula Oxymask Oxygen Flow Rate 10 6 10 Sepsis Recent Fever Within 48 Hours Yes Sepsis New/Unexplained Change in Mental Status Yes Sepsis Action Taken by Nursing Physician Notified 02/25/19 09:57 02/25/19 10:01 02/25/19 10:54 Temperature Temperature Source Pulse Rate Pulse Rate [Apical] 72 65 68 Pulse Rhythm Pulse Rhythm [Apical] Respiratory Rate 16 16 20 Respiratory Effort / Characteristics Spontaneous Respiratory Depth Respiratory Pattern Blood Pressure Blood Pressure [Right Arm] 93/64 L 93/55 L Blood Pressure Mean Blood Pressure Mean [Right Arm] 73 67 Pulse Oximetry 96 95 98 Oxygen Delivery Method Oxymask Oxymask Oxymask Oxygen Flow Rate 10 10 9 Sepsis Recent Fever Within 48 Hours Sepsis New/Unexplained Change in Mental Status Sepsis Action Taken by Nursing 02/25/19 11:30 Temperature Temperature Source Pulse Rate Pulse Rate [Apical] 69 Pulse Rhythm Pulse Rhythm [Apical] Regular Respiratory Rate 17 Respiratory Effort / Characteristics Respiratory Depth Shallow Respiratory Pattern Blood Pressure Blood Pressure [Right Arm] 102/56 L Blood Pressure Mean Blood Pressure Mean [Right Arm] 71 Pulse Oximetry 94 Oxygen Delivery Method Oxymask Oxygen Flow Rate 10 Sepsis Recent Fever Within 48 Hours Sepsis New/Unexplained Change in Mental Status Sepsis Action Taken by Nursing CONSTITUTIONAL/VITAL SIGNS: Reviewed / noted above. GENERAL: Non-toxic in appearance. Lethargic but arousable. INTEGUMENTARY: Warm, dry, and [place]. HEAD: Normocephalic. EYES: without scleral icterus or trauma. ENT/OROPHARYNX: clear and moist. LYMPHADENOPATHY/NECK: Is supple without lymphadenopathy or meningismus. RESPIRATORY: Bilateral rhonchi. Lungs equal. CARDIOVASCULAR: Regular rate and rhythm. GI/ABDOMEN: Soft and nontender. No organomegaly or pulsatile mass. No rebound or guarding. Normal bowel sounds. EXTREMITIES: Warm and well perfused. BACK: No CVA tenderness. NEUROLOGICAL: Intact without focal deficits. Generally weak. PSYCHIATRIC: normal affect. MUSCULOSKELETAL: Normally developed with good muscle tone. Course Course 0955: Past medical records reviewed. The patient was evaluated in room A09B, and a complete history and physical examination were performed. 1128: I reevaluated the patient and she is resting in bed in stable condition. 1135: I spoke to Dr. Ken Izquierdo [facility] Hospitalist about the patient's case. She is going to accept the patient for further evaluation. Consultations Consultation #1: I spoke to Dr. Ken Izquierdo [facility] Hospitalist about the patient's case. She is going to accept the patient for further evaluation. Time: 11:35 Administered Medications Vancomycin HCl 1,750 mg/ (Sodium Chloride) 535 mls @ 200 mls/hr IV NOW ONE Stop: 02/25/19 13:07 Last Admin: 02/25/19 11:02 Dose: 200 mls/hr Documented by: [id number] Discontinued Medications Albuterol (Duoneb) 3 ml NEB NOW STA Stop: 02/25/19 10:28 Last Admin: 02/25/19 10:52 Dose: 3 ml Documented by: [id number] Ertapenem (Invanz) 10 mls @ 2 mls/min IV NOW STA Stop: 02/25/19 10:02 Last Admin: 02/25/19 11:01 Dose: 2 mls/min Documented by: [id number] Sodium Chloride (Nss 1000ml) 2,000 mls @ 999 mls/hr IV .Q2H1M ONE Stop: 02/25/19 11:58 Last Infusion: 02/25/19 11:52 Dose: 0 mls/hr Documented by: [id number] Admin: 02/25/19 09:45 Dose: 999 mls/hr Documented by: [id number] Medical Decision Making Differential Diagnosis The differential was considered includes acute myocardial infarction, acute coronary syndrome, myocarditis, pericarditis, pericardial effusions /tamponad, esophageal perforation, pulmonary embolism, pneumonia, pneumothorax, cardiomyopathy, congestive heart, anemia , COPD/asthma exacerbation. Medical Records Attestation: I reviewed the patient's medical records. Home Medications Current Medication List: was personally reviewed by me Laboratory Data Attestation: I reviewed the patient's lab results. Result diagrams: 02/25/19 10:51 02/25/19 10:51 Lab Results 02/25/19 02/25/19 02/25/19 Range/Units 09:56 10:40 10:51 WBC 18.11 H (4.8-10.8) K/uL RBC 3.61 L (4.2-5.4) M/uL Hgb 10.8 L (12.0-16.0) g/dL Hct 35.8 L (37-47) % MCV 99.2 (80-100) fL MCH 29.9 (25-34) pg MCHC 30.2 L (32-36) g/dL RDW Std Deviation 56.6 H (36.4-46.3) fL RDW Coeff of Yuli 16.3 H (11.5-14.5) % Plt Count 132 (130-400) K/uL MPV 10.7 H (7.4-10.4) fL Immature Gran % (Auto) 0.7 % Neut % (Auto) 82.1 % Lymph % (Auto) 7.7 % [place] % (Auto) 7.8 % Eos % (Auto) 1.5 % Baso % (Auto) 0.2 % Immature Gran # (Auto) 0.12 H (0.00-0.02) K/uL Neut # (Auto) 14.87 H (1.4-6.5) K/uL Lymph # (Auto) 1.39 (1.2-3.4) K/uL [place] # (Auto) 1.42 H (0.11-0.59) K/uL Eos # (Auto) 0.28 (0-0.5) K/uL Baso # (Auto) 0.03 (0-0.2) K/uL Absolute Nucleated RBC 0.27 H (0-0) K/uL Nucleated RBC % (auto) 1.5 % PT (9.0-12.0) Seconds INR (0.9-1.1) Sodium (136-145) mmol/L Potassium (3.5-5.1) mmol/L Chloride (98-107) mmol/L Carbon Dioxide (21-32) mmol/L Anion Gap (3-11) BUN (7-18) mg/dl Creatinine (0.6-1.2) mg/dl Est Cr Clr Drug Dosing ml/min Est GFR ( Amer) Est GFR (Non-Af Amer) BUN/Creatinine Ratio (10-20) Glucose (70-99) mg/dl POC Lactic Acid Gavino (0.90-1.70) mmol/L Calcium (8.5-10.1) mg/dl Total Bilirubin (0.2-1) mg/dl AST (15-37) U/L ALT (12-78) U/L Alkaline Phosphatase (45-117) U/L Troponin I (0-0.045) ng/ml Total Protein (6.4-8.2) gm/dl Albumin (3.4-5.0) gm/dl Globulin (2.5-4.0) gm/dl Albumin/Globulin Ratio (0.9-2) Urine Color Mayi Urine Appearance Slightly Cloudy (Clear) Urine pH 5.0 (4.5-7.5) Ur Specific [place] 1.025 (1.000-1.030) Urine Protein 1+ H (Negative) Urine Glucose (UA) Negative (Negative) Urine Ketones Negative (Negative) Urine Blood Trace H (Negative) Urine Nitrite Negative (Negative) Urine Bilirubin Negative (Negative) Urine Urobilinogen Negative (Negative) Ur Leukocyte Esterase Negative (Negative) Urine RBC 0-4 (0-4) /hpf Urine WBC 5-10 H (0-5) /hpf Ur Epithelial Cells >30 H (0-5) /lpf Amorphous Sediment Present A (None Prsent) Urine Bacteria 1+ H (Negative) Hyaline Casts 0-5 (0-5) /lpf Influenza Type A Ag Neg for Influ A (Neg) Influenza Type B Ag Neg for Influ B (Neg) 02/25/19 02/25/19 02/25/19 Range/Units 10:51 10:51 10:54 WBC (4.8-10.8) K/uL RBC (4.2-5.4) M/uL Hgb (12.0-16.0) g/dL Hct (37-47) % MCV (80-100) fL MCH (25-34) pg MCHC (32-36) g/dL RDW Std Deviation (36.4-46.3) fL RDW Coeff of Yuli (11.5-14.5) % Plt Count (130-400) K/uL MPV (7.4-10.4) fL Immature Gran % (Auto) % Neut % (Auto) % Lymph % (Auto) % [place] % (Auto) % Eos % (Auto) % Baso % (Auto) % Immature Gran # (Auto) (0.00-0.02) K/uL Neut # (Auto) (1.4-6.5) K/uL Lymph # (Auto) (1.2-3.4) K/uL [place] # (Auto) (0.11-0.59) K/uL Eos # (Auto) (0-0.5) K/uL Baso # (Auto) (0-0.2) K/uL Absolute Nucleated RBC (0-0) K/uL Nucleated RBC % (auto) % PT 65.2 H (9.0-12.0) Seconds INR 7.3 H* (0.9-1.1) Sodium 148 H (136-145) mmol/L Potassium 5.8 H (3.5-5.1) mmol/L Chloride 116 H (98-107) mmol/L Carbon Dioxide 24 (21-32) mmol/L Anion Gap 8.0 (3-11) BUN 55 H (7-18) mg/dl Creatinine 2.08 H (0.6-1.2) mg/dl Est Cr Clr Drug Dosing 21.6 ml/min Est GFR ( Amer) 25.4 Est GFR (Non-Af Amer) 21.9 BUN/Creatinine Ratio 26.4 H (10-20) Glucose 111 H (70-99) mg/dl POC Lactic Acid Gavino 1.57 (0.90-1.70) mmol/L Calcium 8.8 (8.5-10.1) mg/dl Total Bilirubin 0.7 (0.2-1) mg/dl AST 32 (15-37) U/L ALT 14 (12-78) U/L Alkaline Phosphatase 135 H (45-117) U/L Troponin I 1.270 H* (0-0.045) ng/ml Total Protein 7.1 (6.4-8.2) gm/dl Albumin 2.2 L (3.4-5.0) gm/dl Globulin 4.9 H (2.5-4.0) gm/dl Albumin/Globulin Ratio 0.5 L (0.9-2) Urine Color Urine Appearance (Clear) Urine pH (4.5-7.5) Ur Specific [place] (1.000-1.030) Urine Protein (Negative) Urine Glucose (UA) (Negative) Urine Ketones (Negative) Urine Blood (Negative) Urine Nitrite (Negative) Urine Bilirubin (Negative) Urine Urobilinogen (Negative) Ur Leukocyte Esterase (Negative) Urine RBC (0-4) /hpf Urine WBC (0-5) /hpf Ur Epithelial Cells (0-5) /lpf Amorphous Sediment (None Prsent) Urine Bacteria (Negative) Hyaline Casts (0-5) /lpf Influenza Type A Ag (Neg) Influenza Type B Ag (Neg) Imaging Data Radiologist's Impression: Radiology results as stated below per my review and the radiologist's interpretation: SINGLE VIEW CHEST CLINICAL HISTORY: Fever. FINDINGS: An AP, portable, upright chest radiograph is compared to study dated 07/19/2006. The examination is degraded by portable technique and patient rotation. The heart is enlarged noting atherosclerotic calcification of the thoracic aorta. There is multifocal bilateral airspace consolidation. No large pleural effusion or pneumothorax is seen. The skeletal structures are osteopenic. The bony thorax is grossly intact. Cholecystectomy clips are noted in the right upper quadrant. IMPRESSION: There is multifocal bilateral airspace consolidation. Top differential considerations include multifocal pneumonia and/or pulmonary edema. Clinical correlation will be essential. Electronically signed by: Vic Garcia M.D. 02/25/2019 11:21 AM ECG Data Attestation: I personally reviewed and interpreted this ECG as follows: Indication: + SOB/dyspnea Rate (beats per minute): 76 Rhythm: + normal sinus ECG ST segments: no ST elevation ECG Findings: no PACs and no PVCs Blood Pressure Blood Pressure Findings: Low blood pressure Blood Pressure Disposition: further management by hospitalist MDM Narrative This is a 78-year-old female who presents to the ED with a chief complaint of altered mental status and shortness of breath with hypoxia. Her oxygen saturations when she first arrived was in the 70s on room air. She does not use oxygen at home. She was noted to have a fever. Her physical exam reveals some rhonchi bilaterally. She is arousable but appears to be tired. She is a DNR. Urine did not show obvious infection. EKG shows normal sinus rhythm. Chest x- ray reveals multifocal pneumonia. White blood cell count is elevated 18,000. Kidney function tests are abnormally elevated. Potassium is slightly elevated. Troponin is slightly elevated.The patient was treated with IV fluids. She was given 2 L bolus. In addition to this, the patient was also given IV ertapenem and IV vancomycin. I spoke with Gia Rogers from the hospitalist service. She will see the patient for admission. The patient's vital signs were somewhat low although appear to be stable with IV fluids. Impression & Plan Pneumonia, Hypoxia Discharge Plan Visit Data Chief Complaint: Respiratory Problems Stated Complaint: sob/lethargic ED Provider: Pancho De La Cruz Discharge Problem: Pneumonia, Hypoxia Patient Disposition: Being Evaluated by Hospitalist Forms Stand Alone Forms: My [facility] Prescriptions Prescriptions: No Action fluconazole 100 mg tablet 100 mg PO DAILY@1000 RF: 0 buspirone 5 mg tablet 5 mg PO BID RF: 0 levothyroxine 137 mcg tablet 137 mcg PO QAM RF: 0 nystatin 100,000 unit/mL suspension 5 ml PO QID RF: 0 trazodone 50 mg tablet 25 mg PO HS RF: 0 donepezil 10 mg tablet 10 mg PO HS RF: 0 dextromethorphan-guaifenesin 10-100 mg/5 mL Liquid 10 ml PO Q6H PRN (Reason: Cough) RF: 0 isosorbide mononitrate 30 mg tablet extended release 24 hr 30 mg PO QAM RF: 0 clonazepam 0.5 mg tablet 0.5 mg PO BID RF: 0 sennosides-docusate sodium [Senna Plus] 8.6-50 mg Tablet 1 tab-cap PO BID RF: 0 clopidogrel 75 mg tablet 75 mg PO QAM RF: 0 Vitamin B-12 250 mcg Tablet 250 mcg PO QAM RF: 0 allopurinol 100 mg tablet 100 mg PO QAM RF: 0 acetaminophen [Tylenol Extra Strength] 500 mg Tablet 1,000 mg PO BID PRN (Reason: Pain) RF: 0 ranitidine HCl 150 mg tablet 150 mg PO BID RF: 0 warfarin 2 mg tablet 2 mg PO HS RF: 0 gabapentin 300 mg capsule 300 mg PO HS RF: 0 metoprolol succinate 25 mg tablet extended release 24 hr 12.5 mg PO QAM RF: 0 cefuroxime axetil 500 mg tablet 500 mg PO BID RF: 0 oxycodone 5 mg tablet 5 mg PO TID RF: 0 bisacodyl 5 mg Tablet 5 mg PO QAM RF: 0 memantine 5 mg tablet 5 mg PO BID RF: 0 nitrofurantoin monohyd/m-cryst 100 mg capsule 100 mg PO BID RF: 0 duloxetine 60 mg capsule,delayed release(DR/EC) 60 mg PO QAM RF: 0 melatonin 5 mg Tablet 5 mg PO HS RF: 0 ferrous gluconate 324 mg (37.5 mg iron) Tablet 324 mg PO BID RF: 0 potassium chloride 20 mEq Tablet Extended Release 20 meq PO QAM RF: 0 Oyster Shell Calcium-Vit D3 500 mg(1,250mg) -200 unit Powder In Packet 1 ea PO BID RF: 0 Referrals Referrals: Kathy Terrazas [Primary Care Provider] - Discharge Problem: Pneumonia Qualifiers: Pneumonia type: due to unspecified organism Laterality: bilateral Lung location: unspecified part of lung Qualified Code(s): J18.9 - Pneumonia, unspecified organism The scribe's documentation has been prepared under my direction and personally reviewed by me in its entirety. I confirm that the note above accurately reflects all work, treatment, procedures, and medical decision making performed by me.
[2019-02-25] MEDS ORDERED: ONDANSETRON INJ 2 MG/ML 2 ML VIAL IV PRN (13:40)
[2019-02-25] MEDS ORDERED: VANCOMYCIN HCL 1,000 MG in SODIUM CHLORIDE 0.9% 250 ML IV SCH (13:40)
[2019-02-25] MEDS ORDERED: ACETAMINOPHEN 500 MG TAB PO PRN (13:40)
--- NOTE | 2019-02-25 14:17 | Pharmacy Report ---
Pharmacy Abx Dose Short Note - Date of Service February 25, 2019 - Assessment & Plan Assessment * 78 year old F admitted for SOB, hypoxemia, possible pneumonia. Pharmacy consulted to dose Vancomycin IV. Ertapenem dosing per Hospitalist. * CXR read as multifocal b/l airspace consolidation, pna vs pulm edema (pt does have h/o ischemic cardiomyopathy), increased troponin * + leukocytosis, currently afebrile, O2 sats in 90s while on 10L Oxymask, SBP < 100 however most MAPs maintained > 70 * MRSA nasal swab pending * Blood and urine cx's collected (UA reflective of contamination: > 30 epis, neg nitrate, neg LE, less than 10 WBC) * + h/o ESBL e coli in urine * Patient's med rec states she was receiving Ceftin prior to admission * GABRIEL present, SCr 2.08 (Baseline ~1.5-1.6) Plan Vancomycin * Loading dose: 1750mg (~24mg/kg) x 1 given in ED today * Maint dose: will refrain from ordering maint dose at this time given predicted half-life > 24 hrs * Goal trough level for pulm infxn: 15 to 20 mcg/mL * Will check random level w/ AM labs tomorrow and redose if less than 20 * P'kinetic estimates: Vd 0.7L/kg; half-life ~30 hrs Pharmacy will continue to follow and will adjust dose/frequency as necessary. Thank you.
[2019-02-25] MEDS: LEVALBUTEROL 1.25MG/0.5ML NEB NEB SCH ×2 (14:19→19:05)
[2019-02-25] MEDS: OXYCODONE HCL IR 5 MG TAB (IMMEDIATE RELEASE) PO SCH ×2 (14:59→20:54)
[2019-02-25] MEDS: CALCIUM 600MG + VIT D 400 IU TAB PO SCH (15:44)
[2019-02-25] MEDS: NYSTATIN SUSP 500,000 U/5 ML UDC PO SCH ×3 (15:44→20:52)
[2019-02-25] MEDS: MEMANTINE HCL 5 MG TAB PO SCH (15:45)
[2019-02-25] MEDS: clonazePAM 0.5 MG TAB PO SCH (16:59)
[2019-02-25] MEDS: DOCUSATE SODIUM/SENNA 50/8.6MG TAB PO SCH (16:59)
[2019-02-25] MEDS ORDERED: bisacodyL 10 MG SUPP PR STA (17:43)
[2019-02-25] MEDS ORDERED: bisacodyL 10 MG SUPP PR PRN (17:44)
[2019-02-25] MEDS: DONEPEZIL HCL 10 MG TAB PO SCH (20:52)
[2019-02-25] MEDS: TRAZODONE HCL 50 MG TAB PO SCH (20:52)
[2019-02-25] MEDS: guaiFENesin 600 MG TABCR PO SCH (20:52)
[2019-02-25] MEDS: GABAPENTIN 300 MG CAP PO SCH (20:52)
[2019-02-25] MEDS: FERROUS SULFATE 325 MG TAB PO SCH (20:54)
[2019-02-25] MEDS ORDERED: CALCIUM 600MG + VIT D 400 IU TAB PO SCH (21:00)
[2019-02-26] MEDS: LEVALBUTEROL 1.25MG/0.5ML NEB NEB SCH ×4 (01:28→19:19)
[2019-02-26 03:10] LABS: Hematocrit (blood only) 35.7 % (37-47); Hemoglobin 10.6 g/dL (12.0-16.0); Mean Corpuscular Hemoglobin 29.9 pg (25-34); Mean Corpuscular Hgb Conc 29.7 g/dL (32-36); Mean Corpuscular Volume 100.8 fL (80-100); Mean Platelet Volume 11.3 fL (7.4-10.4); Nucleated RBC # (auto) 0.17 K/uL (0-0); Platelet Count 123 K/uL (130-400); RDW Coefficient of Variation 16.5 % (11.5-14.5); RDW Standard Deviation 58.3 fL (36.4-46.3); Red Blood Count 3.54 M/uL (4.2-5.4); White Blood Count 17.56 K/uL (4.8-10.8)
[2019-02-26 03:21] LABS: Albumin Level 2.2 gm/dl (3.4-5.0); BUN Creatinine Ratio 28.3 (10-20); Calcium 8.5 mg/dl (8.5-10.1); Creatinine Clr Calc Pharmacy 23.8 ml/min; Est GFR (African American) 28.5; Est GFR (Non-African American) 24.6; Potassium 5.7 mmol/L (3.5-5.1)
[2019-02-26 03:30] LABS: Albumin Globulin Ratio 0.5 (0.9-2); Bilirubin,Total 0.6 mg/dl (0.2-1); Globulin 4.6 gm/dl (2.5-4.0); Total Protein 6.8 gm/dl (6.4-8.2); Troponin I 1.09 ng/ml (0-0.045)
[2019-02-26 03:33] LABS: Prothrombin Time 84.4 Seconds (9.0-12.0)
[2019-02-26 03:39] LABS: INR 9.7 (0.9-1.1)
[2019-02-26] MEDS ORDERED: LEVOTHYROXINE SODIUM 137 MCG TABLET PO SCH (06:30)
[2019-02-26] MEDS: DOCUSATE SODIUM/SENNA 50/8.6MG TAB PO SCH ×2 (08:54→17:22)
[2019-02-26] MEDS: clonazePAM 0.5 MG TAB PO SCH ×2 (08:54→17:22)
[2019-02-26] MEDS: CALCIUM 600MG + VIT D 400 IU TAB PO SCH ×2 (08:54→17:22)
[2019-02-26] MEDS: FERROUS SULFATE 325 MG TAB PO SCH ×2 (08:54→19:55)
[2019-02-26] MEDS: MEMANTINE HCL 5 MG TAB PO SCH ×2 (08:54→17:22)
[2019-02-26] MEDS: NYSTATIN SUSP 500,000 U/5 ML UDC PO SCH ×4 (08:55→19:56)
[2019-02-26] MEDS: guaiFENesin 600 MG TABCR PO SCH ×2 (08:55→19:56)
[2019-02-26] MEDS: OXYCODONE HCL IR 5 MG TAB (IMMEDIATE RELEASE) PO SCH ×3 (08:55→19:56)
[2019-02-26] MEDS ORDERED: POTASSIUM CHLORIDE 20 MEQ TABCR PO SCH (09:00)
[2019-02-26] MEDS ORDERED: allopurinoL 100 MG TAB PO SCH (09:00)
[2019-02-26] MEDS ORDERED: CLOPIDOGREL BISULFATE 75 MG TAB PO SCH (09:00)
[2019-02-26] MEDS ORDERED: CYANOCOBALAMIN 500 MCG TABLET (VITAMIN B-12) PO SCH (09:00)
[2019-02-26] MEDS ORDERED: bisacodyL 5 MG TABEC PO SCH (09:00)
[2019-02-26] MEDS ORDERED: DULOXETINE HCL 60 MG CAP PO SCH (09:00)
[2019-02-26] MEDS ORDERED: ISOSORBIDE MONO EXTENDED REL 30 MG TABCR PO SCH (09:00)
[2019-02-26] MEDS ORDERED: METOPROLOL SUCC 25MG EXT REL TAB PO SCH (09:00)
--- NOTE | 2019-02-26 10:10 | Pharmacy Report ---
Pharmacy Abx Dose Short Note - Date of Service February 26, 2019 - Assessment & Plan Assessment * 78 year old F admitted for SOB, hypoxemia, possible pneumonia. Pharmacy consulted to dose Vancomycin IV. Ertapenem dosing per Hospitalist. * CXR read as multifocal b/l airspace consolidation, pna vs pulm edema (pt does have h/o ischemic cardiomyopathy), increased troponin * Currently afebrile, O2 sats in low-mid 90s while on BiPAP FiO2 60, RR elevated this AM, no hypotension noted * MRSA nasal swab negative - greatly reducing likelihood of MRSA pneumonia * Blood and urine cx's collected (UA reflective of contamination: > 30 epis, neg nitrate, neg LE, less than 10 WBC) - no growth reported at this time * + h/o ESBL e coli in urine * Patient's med rec states she was receiving Ceftin prior to admission * GABRIEL improving, SCr 2.08-->1.89 (Baseline ~1.5-1.6) Plan Vancomycin * Loading dose: 1750mg (~24mg/kg) x 1 given in ED yesterday mid-day * Maint dose: will refrain from ordering maint dose at this time given predicted half-life > 24 hrs * Would estimate redosing needed at [phone] this afternoon if therapy to continue. Will order 1000mg (~13.7mg/kg) IV x 1 at 1600. * Goal trough level for pulm infxn: 15 to 20 mcg/mL * Will check random level w/ AM labs tomorrow and redose if less than 20 * P'kinetic estimates: Vd 0.7L/kg; half-life ~21-29 hrs Pharmacy will continue to follow and will adjust dose/frequency as necessary. Thank you.
[2019-02-26] MEDS ORDERED: ERTAPENEM SODIUM 500 MG in SODIUM CHLORIDE 0.9% 50 ML IV SCH (12:00)
[2019-02-26] MEDS ORDERED: LACTATED RINGER'S 1,000 ML IV SCH (15:30)
[2019-02-26] MEDS ORDERED: VANCOMYCIN HCL 1,000 MG in SODIUM CHLORIDE 0.9% 250 ML IV ONE (16:00)
[2019-02-26 16:15] LABS: Base Excess ABG -2.9 mEq/L (-9-1.8); HCO3 ABG 20 mmol/L (19-24); PCO2 ABG 30 mmHg (35-46); PO2 ABG 66 mm/Hg (80-95); pH ABG 7.45 (7.35-7.45)
[2019-02-26 16:24] LABS: Allen Test POS (Pos)
[2019-02-26 16:25] LABS: BUN Creatinine Ratio 27.3 (10-20); Blood Urea Nitrogen 51 mg/dl (7-18); Calcium 8.7 mg/dl (8.5-10.1); Carbon Dioxide 22 mmol/L (21-32); Chloride 120 mmol/L (98-107); Creatinine Clr Calc Pharmacy 24.8 ml/min; Est GFR (African American) 29.1; Est GFR (Non-African American) 25.1; Glucose 146 mg/dl (70-99); Potassium 5.4 mmol/L (3.5-5.1); Sodium 151 mmol/L (136-145)
[2019-02-26 16:31] LABS: NT Pro B Type Natriuretic Pept > 35000 pg/ml (0-1800); Troponin I 0.796 ng/ml (0-0.045)
[2019-02-26] MEDS ORDERED: MoRPHine SULFATE 5 MG/0.25 ML UDP PO PRN (17:15)
[2019-02-26] MEDS: MoRPHine SULFATE 2 MG/ML CARP IV PRN ×4 (17:25→23:07)
[2019-02-26] MEDS ORDERED: PHYTONADIONE 5 MG in SODIUM CHLORIDE 0.9% 50 ML IV ONE (17:25)
[2019-02-26] MEDS: DONEPEZIL HCL 10 MG TAB PO SCH (19:55)
[2019-02-26] MEDS: TRAZODONE HCL 50 MG TAB PO SCH (19:55)
[2019-02-26] MEDS: GABAPENTIN 300 MG CAP PO SCH (19:56)
[2019-02-26] MEDS ORDERED: LORazepam 1 MG/2 ML VIAL IV PRN (21:52)
--- NOTE | 2019-02-26 22:27 | Hospitalist Progress Note ---
Date of Service February 26, 2019 Assessment & Plan (1) Acute and chronic respiratory failure with hypoxia: - Unsure exact cause of this. Given her elevated BNP it is very likely patient has CHF. Patient also has acute kindey failure. Diuresing her may make this worse. Ordered echo, ordered procal, BNP. Ordered to continue on bipap. She has been on bipap throughout the day, but appears to be tiring out. She is able to make her own decisions and family arrived later and agree with her decision. Patient states she does not want any heroic measures nor does she want to be intubated. After discussing case with critical care team, will transition to comfort overnight. Patient appears to be entering multiorgan failure. (2) Pneumonia: Lactic acid was elevated. Likely due to CHF/NSTEMI/ vs myocardial demand ischemia. - Repeat Lactic at 1300, initial POC value was 1.57 - Continue vanc and ertapenum IV due to allergies to penicillins and sulfa - Speech eval for possible aspiration with worsened breath sounds in the RML and RLL, bedside swallow to be completed by nursing prior to any food. - Incentive spirometry, mucinex, levalbuterol nebs QID and Q2H prn - Sputum culture if expectorates - Check MRSA swab, influenza was negative - Continue supplemental O2 prn and titrate (3) CAD (coronary artery disease): - Cont metoprolol succ 12.5 mg daily, imdur, 30 mg QAM, Plavix 75 mg daily - EKG reviewed, NSR without signs of acute ischemic events or ST wave changes. (4) Ischemic cardiomyopathy: - Continue medications as above - Consider 2D echo, last was from August 2004 with LVEF =55%, normal systolic function (5) PVD (peripheral vascular disease): - Continue medications as above (6) HLD (hyperlipidemia): - not on statin therapy (7) Dementia without behavioral disturbance: - Continue namenda, severity unknown. (8) CKD (chronic kidney disease) stage 3, GFR 30-59 ml/min: - Cr. stable at 2.08, BUN = 55 - Follow am prp - Avoid nephrotoxins and renally dose medication (9) Hypothyroidism: - Cont levothyroxine (10) DM II (diabetes mellitus, type II), controlled: - Not on antiglycemics as outpt, trend glucose with daily BMP, glucose upon arrival is 111. Add ISS if continuously elevated while inpatient. - Last a1c= 6.8 on 02/10/19 (11) Anemia: - Hgb stable at 10.8, follow am CBC = Continue iron supplementation (12) Anxiety: (13) MDD (major depressive disorder): - Continue Cymbalta, buspar, gabapentin, clonazepam, trazodone - holding melatonin (14) Hx of deep venous thrombosis: - INR supratherapeutic at 7.3, hold coumadin until therapeutic - follow daily pt/inr - Caution with antibiotics as above as may influence (15) GERD (gastroesophageal reflux disease): - Continue ranitidine 150 mg BID (16) Back pain: - Continue cymbalta, gabapentin, oxycodone, tylenol for pain (17) Osteoarthritis: - Medications as above, multiple joints. (18) DVT prophylaxis: - INR supratherapeutic, holding coumadin for now with daily INRs, teds CODE: DNR (19) Pressure ulcer of sacral region, stage 2: wound care as per nursing. (20) Acute kidney failure: Likely prerenal from poor perfusion. will monitor (21) NSTEMI (non-ST elevated myocardial infarction): INR is supratherapetuic. Heprain at this point will be contraindicated. will monitor. (22) Supratherapeutic INR: Likely from early liver failure and warfarin toxicity. will order vit k. (23) Multiorgan failure: as stated above. Subjective Patient reports she continues to be SOB. She states she does not want to be intubated or have any additional escalation of care. She had a discussion with me and APC from Critical Care. Patient has been on BIPAP throughout the day. Review of Systems Review of Systems: Unobtainable due to reduced consciousness Physical Exam Physical Exam: Constitutional: wD/WN, vitals as above + ill appearing, ON BIPAP Eyes: normal visual woodward by confrontation and + anicteric sclerae Neck: normal visual inspection and trachea midline Respiratory: normal respiratory effort (slightly increased work of breathing with discussion); no respiratory distress Auscultation: + crackles; no wheezes Cardiovascular: Rate/Rhythm: tachycardic and regular rhythm Gastrointestinal (Abdomen): Inspection/Auscultation: abdomen not distended Percussion/Palpation: abdomen soft; abdomen nontender Musculoskeletal: Head/Neck/Chest: normocephalic and head atraumatic Pt with R hand and wrist swelling around bandaging edema, + pedal pulses Skin: no rashes, warm and dry R hand is bruised along dorsal aspect and wrist Neurologic: awake; not confused Speech / Cognition: normal speech Psychiatric: Orientation: oriented to person and cooperative Results & Data Vital Signs (Past 12 Hours) Vital Signs Temp Pulse Pulse Resp BP Pulse Ox 02/26/19 19:22 98 H 108 H 38 H 92 02/26/19 17:42 98 H 02/26/19 17:31 98 H 35 H 141/57 H 93 02/26/19 17:18 96 H 39 H 139/99 92 02/26/19 17:01 94 H 38 H 120/29 L 91 02/26/19 16:45 92 H 40 H 171/68 H 88 L 02/26/19 16:30 88 44 H 86/72 L 56 L 02/26/19 16:23 89 40 H 142/66 H 91 02/26/19 15:38 92 H 38 H 90 02/26/19 15:19 36.6 C 94 H 34 H 146/109 H 90 02/26/19 12:59 92 H 35 H 91 02/26/19 12:48 88 36 H 87 L 02/26/19 12:44 90 38 H 87 L 02/26/19 10:44 37.2 C 90 30 H 106/53 L 90 PG Care Time/CCT Total # of Minutes Spent Total Time Spent with Patient: Total time spent is greater than 50% in coordination of care (as documented) at patient's floor/unit and/or counseling patient: Critical Care Time: Yes Total Critical Care Time: 35 65 (1) Pneumonia Laterality: bilateral Lung location: unspecified part of lung Pneumonia type: due to unspecified organism Qualified Code(s): J18.9 - Pneumonia, unspecified organism
[2019-02-26] MEDS ORDERED: SCOPOLAMINE 1.5 MG TDSY TD ONE (22:30)
[2019-02-26] MEDS ORDERED: MoRPHine SULFATE 2 MG/ML CARP IV STA ×2 (23:46)
--- NOTE | 2019-02-26 23:53 | History & Physical Report ---
Date of Service February 26, 2019 History of Present Illness Primary Care Provider: [place] [facility] Allergies Allergy/AdvReac Type Severity Reaction Status Date / Time Penicillins Allergy Unknown Verified 02/25/19 10:16 aspirin AdvReac Mild UNCOATED - Verified 02/25/19 10:16 GI UPSET abciximab AdvReac Unknown THROMBOCYTO Verified 02/25/19 10:16 PENIA morphine AdvReac Unknown MENTAL Verified 02/25/19 10:16 STATUS CHANGES CONTRASTMEDIA Allergy Unknown RASH Uncoded 02/25/19 10:16 SULFA Allergy Unknown UNKNOWN Uncoded 02/25/19 10:16 Home Medications Home Medications Medication Instructions Recorded Confirmed Type acetaminophen [Tylenol Extra 1,000 mg PO BID PRN 02/25/19 02/25/19 History Strength] allopurinol 100 mg PO QAM 02/25/19 02/25/19 History bisacodyl 5 mg PO QAM 02/25/19 02/25/19 History buspirone 5 mg PO BID 02/25/19 02/25/19 History calcium carbonate-vitamin D3 1 ea PO BID 02/25/19 02/25/19 History [Oyster Shell Calcium-Vit D3] cefuroxime axetil 500 mg PO BID 02/25/19 02/25/19 History clonazepam 0.5 mg PO BID 02/25/19 02/25/19 History clopidogrel 75 mg PO QAM 02/25/19 02/25/19 History cyanocobalamin (vitamin B-12) 250 mcg PO QAM 02/25/19 02/25/19 History [Vitamin B-12] dextromethorphan-guaifenesin 10 ml PO Q6H PRN 02/25/19 02/25/19 History donepezil 10 mg PO HS 02/25/19 02/25/19 History duloxetine 60 mg PO QAM 02/25/19 02/25/19 History ferrous gluconate 324 mg PO BID 02/25/19 02/25/19 History fluconazole 100 mg PO DAILY@1000 02/25/19 02/25/19 History gabapentin 300 mg PO HS 02/25/19 02/25/19 History isosorbide mononitrate 30 mg PO QAM 02/25/19 02/25/19 History levothyroxine 137 mcg PO QAM 02/25/19 02/25/19 History melatonin 5 mg PO HS 02/25/19 02/25/19 History memantine 5 mg PO BID 02/25/19 02/25/19 History metoprolol succinate 12.5 mg PO QAM 02/25/19 02/25/19 History nitrofurantoin monohyd/m-cryst 100 mg PO BID 02/25/19 02/25/19 History nystatin 5 ml PO QID 02/25/19 02/25/19 History oxycodone 5 mg PO TID 02/25/19 02/25/19 History potassium chloride 20 meq PO QAM 02/25/19 02/25/19 History ranitidine HCl 150 mg PO BID 02/25/19 02/25/19 History sennosides-docusate sodium [Senna 1 tab-cap PO BID 02/25/19 02/25/19 History Plus] trazodone 25 mg PO HS 02/25/19 02/25/19 History warfarin 2 mg PO HS 02/25/19 02/25/19 History Past Med/Surg History Medical History (Updated 02/25/19 @ 13:21 by Belle Briggs PA-C) Acute and chronic respiratory failure with hypoxia Anemia Anxiety Back pain CAD (coronary artery disease) CKD (chronic kidney disease) stage 3, GFR 30-59 ml/min Dementia without behavioral disturbance DM II (diabetes mellitus, type II), controlled GERD (gastroesophageal reflux disease) HLD (hyperlipidemia) Hx of deep venous thrombosis Hypertension Hypothyroidism Ischemic cardiomyopathy MDD (major depressive disorder) Osteoarthritis PVD (peripheral vascular disease) Family History Other Family history non-contributory Social History Preferred Language: Y[place]ut Communication Ability: Impaired Communication Ability Comment: lethargic 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 Beliefs That Will Affect Care: None Current Living Situation: [facility] Current Living Situation Comment[facility] Other Information That Helps Us Care for You: No Feels Safe at Home: Yes Safety Concerns: Feels Safe At This Time Smoking Status: Unknown if ever smoked Hx Alcohol Use: No Hx Substance Use: No Results & Data Vital Signs (Past 12 Hours) Vital Signs Temp Pulse Pulse Resp BP Pulse Ox 02/26/19 19:22 98 H 108 H 38 H 92 02/26/19 17:42 98 H 02/26/19 17:31 98 H 35 H 141/57 H 93 02/26/19 17:18 96 H 39 H 139/99 92 02/26/19 17:01 94 H 38 H 120/29 L 91 02/26/19 16:45 92 H 40 H 171/68 H 88 L 02/26/19 16:30 88 44 H 86/72 L 56 L 02/26/19 16:23 89 40 H 142/66 H 91 02/26/19 15:38 92 H 38 H 90 02/26/19 15:19 36.6 C 94 H 34 H 146/109 H 90 02/26/19 12:59 92 H 35 H 91 02/26/19 12:48 88 36 H 87 L 02/26/19 12:44 90 38 H 87 L Code Status & VTE Plan VTE Prophylaxis Plan VTE Prophylaxis will be ordered: Yes
[2019-02-27] MEDS: MoRPHine SULFATE 2 MG/ML CARP IV PRN ×5 (01:21→04:33)
[2019-02-27] MEDS: ATROPINE SULFATE 1% OP SOLN 5 ML BTL SL PRN ×2 (01:55→04:33)
[2019-02-27] MEDS ORDERED: CHECK SCOPOLAMINE PATCH PLACEMENT SCH (08:00)
--- NOTE | 2019-02-27 08:36 | Death Summary ---
Date of Service February 27, 2019 Pronouncement Note Date and Time of Date of : 02/27/19 Time of : 05:30 PCOD Preliminary cause of : Acute respiratory failure Contributing Factors (1) Pneumonia: (2) Supratherapeutic INR: (3) NSTEMI (non-ST elevated myocardial infarction): (4) Multiorgan failure: (5) Acute and chronic respiratory failure with hypoxia: (6) CAD (coronary artery disease): (7) Ischemic cardiomyopathy: (8) PVD (peripheral vascular disease): (9) HLD (hyperlipidemia): (10) Dementia without behavioral disturbance: (11) CKD (chronic kidney disease) stage 3, GFR 30-59 ml/min: (12) Hypothyroidism: (13) DM II (diabetes mellitus, type II), controlled: (14) Anemia: (15) Hx of deep venous thrombosis: (16) Pressure ulcer of sacral region, stage 2: (17) Acute kidney failure: Summary Additional details: Patient overnight and was pronounced by the night time resident. Patient had developed mutiporgan failure, had acute respiratory failure, ischemic cardiomyopathy, acute kindey failure, and signs of liver damge from supratherapuetic INR. Patient did not want further escalation of care and did not want to be intubated. Patient to remain on BiPAP until family arrived. Patient's family was agreeable with the patient's decision. Family was told on 02/26/19 it was very likely patient will not live through the night. Patient was a DNR/DNI. Additional Data Confirmation of : no pulse, no respirations and no heart sounds Family: contacted (As per nighttime resident.) Attending/PCP notified?: Yes Attending physician: Valentin Darden Was code activated?: No Autopsy requested?: No methods examiner notified?: No Organ bank notified?: No Advance directives: No
== END 2019-02-27 08:21 | disposition expired | DRG 189 ==
LOC: ED 09:37 → 2E 12:11 → SUATTDRO 12:11 → 2E 13:13